=== PATIENT | male | born 1990 | race Two or more races ===

== ENCOUNTER 2022-09-23 19:26 | Emergency (ER) | payer SELFPAY ==
[~2022-09-23] VITALS: Ht 170.2 cm; Wt 75.9 kg
[2022-09-23 19:28] VITALS: BP 119/68
[2022-09-23 20:00] LABS: Basophils # (auto) 0 10 ^3/uL (0-0.2); Basophils % (auto) 0.6 % (0.0-2.0); Eosinophils # (auto) 0.2 10 ^3/uL (0-0.8); Hematocrit 44.2 % (41.0-53.0); Hemoglobin 15.4 g/dL (13.5-17.5); Lymphocytes # (auto) 1.8 10 ^3/uL (0.4-5.4); Lymphocytes % (auto) 27.1 % (10.0-50.0); Mean Corpuscular Hemoglobin 32.9 pg (28.0-32.0); Mean Corpuscular Hgb Conc. 34.8 g/dL (32.0-36.0); Mean Corpuscular Volume 94.7 fL (80.0-100.0); Monocytes # (auto) 0.7 10 ^3/uL (0-1.3); Monocytes % (auto) 9.9 % (0.0-12.0); Neutrophils % (auto) 59.4 % (37.0-80.0); Nucleated Red Blood Cells % 0.2 %; Red Blood Cells 4.67 10^6/uL (4.5-5.90); Red Cell Distribution Width 12.5 % (11.8-14.3); White Blood Cell 6.7 10^3/uL (4.4-10.8)
[2022-09-23 20:20] LABS: INR 1.03 (0.9-1.15); Partial Thromboplastin Time 26.2 sec (24.6-33.4)
[2022-09-23 20:28] LABS: BUN/Creatinine Ratio 21.3 (10.0-20.0); Magnesium 2.2 mg/dL (1.6-2.6); Potassium 3.7 mmol/L (3.5-5.1)
[2022-09-23 20:31] LABS: Bilirubin, Total 0.9 mg/dL (0.2-1.0); Total Protein 7.4 g/dL (6.4-8.2)
[2022-09-24] MEDS ORDERED: SODIUM CHLORIDE 0.9% 1,000 ML IV ONE (01:45)
[2022-09-24] MEDS ORDERED: ONDANSETRON HCL 4 MG/2 ML VIAL IV ONE (01:45)
[2022-09-24 18:31] LABS: Urine Bacteria NONE SEEN /hpf (None Seen); Urine Blood Negative /uL (Negative); Urine Mucus FEW (None Seen); Urine Specific Gravity 1.035 (1.001-1.035); Urine WBC <1 /hpf (0 - 3)
== END 2022-09-24 06:09 | disposition left against medical advice (07) ==
LOC: ER 19:26
DX: R07.89 Other chest pain (principal); R06.02 Shortness of breath; K92.0 Hematemesis; Z53.29 Procedure and treatment not carried out because of patient's decision for other reasons
CPT/HCPCS: 36415; 74176; 80053; 81001; 83690; 83735; 83880; 84484; 85025; 85610; 85730; 93005

== ENCOUNTER 2022-09-24 11:25 | Inpatient (IN) | payer SELFPAY ==
[~2022-09-24] VITALS: Ht 170.2 cm; Wt 73.7 kg
[2022-09-24 11:47] LABS: Basophils # (auto) 0 10 ^3/uL (0-0.2); Basophils % (auto) 0.5 % (0.0-2.0); Eosinophils # (auto) 0.2 10 ^3/uL (0-0.8); Eosinophils % (auto) 3.4 % (0.0-7.0); Hematocrit 45.4 % (41.0-53.0); Hemoglobin 15.6 g/dL (13.5-17.5); Lymphocytes # (auto) 1.2 10 ^3/uL (0.4-5.4); Mean Corpuscular Hemoglobin 32.8 pg (28.0-32.0); Mean Corpuscular Hgb Conc. 34.4 g/dL (32.0-36.0); Mean Corpuscular Volume 95.2 fL (80.0-100.0); Monocytes # (auto) 0.5 10 ^3/uL (0-1.3); Monocytes % (auto) 10.3 % (0.0-12.0); Neutrophils # (auto) 2.7 10 ^3/uL (1.6-8.6); Neutrophils % (auto) 59.8 % (37.0-80.0); Red Blood Cells 4.77 10^6/uL (4.5-5.90); Red Cell Distribution Width 12.5 % (11.8-14.3); White Blood Cell 4.5 10^3/uL (4.4-10.8)
[2022-09-24 12:10] LABS: Albumin 3.9 g/dL (3.4-5.0); BUN/Creatinine Ratio 18.6 (10.0-20.0); Calcium 8.5 mg/dL (8.5-10.1); Potassium 3.4 mmol/L (3.5-5.1)
[2022-09-24 12:14] LABS: Bilirubin, Total 1.5 mg/dL (0.2-1.0); Total Protein 7.4 g/dL (6.4-8.2)
[2022-09-24] MEDS ORDERED: metroNIDAZOLE 500MG/100ML 100 ML IV ONE (15:45)
[2022-09-24] MEDS ORDERED: SODIUM CHLORIDE 0.9% 1,000 ML IV ONE ×2 (15:45)
[2022-09-24] MEDS ORDERED: ONDANSETRON HCL 4 MG/2 ML VIAL IV ONE (15:45)
[2022-09-24] MEDS ORDERED: cefTRIAXone 1GM/50ML D5W 50 ML IV ONE (15:45)
[2022-09-24] MEDS ORDERED: MORPHINE SULFATE 4 MG/ML SYR/VIAL IV ONE (15:45)
[2022-09-24] MEDS ORDERED: MORPHINE SULFATE INJ 2 MG/ml SYRG IV PRN (18:30)
[2022-09-24] MEDS: SODIUM CHLORIDE 0.9% 1,000 ML IV SCH (18:30)
[2022-09-24] MEDS ORDERED: DOCUSATE SOD 100 MG CAP PO PRN (18:30)
[2022-09-24] MEDS ORDERED: ONDANSETRON HCL 4 MG/2 ML VIAL IV PRN (18:30)
[2022-09-24] MEDS ORDERED: POTASSIUM CHL 20 Meq TABLET PO ONE (18:45)
[2022-09-24 21:41] VITALS: BP 111/67
[2022-09-24] MEDS: metroNIDAZOLE 500MG/100ML 100 ML IV SCH (22:22)
[2022-09-25] MEDS: SODIUM CHLORIDE 0.9% 1,000 ML IV SCH ×3 (00:02→13:00)
[2022-09-25 04:21] LABS: Urine Bacteria NONE SEEN /hpf (None Seen); Urine Blood Negative /uL (Negative); Urine Hyaline Cast FEW /lpf (0 - 2); Urine Specific Gravity 1.009 (1.001-1.035); Urine WBC <1 /hpf (0 - 3)
[2022-09-25 04:27] LABS: Alcohol, Urine < 3.0 mg/dL (0-10); Amphetamine Screen, Urine NEGATIVE (NEGATIVE); Barbiturate Scree,Urine NEGATIVE (NEGATIVE); Benzodiazephine Screen, Urine NEGATIVE (NEGATIVE); Cannabinoid Screen, Urine NEGATIVE (NEGATIVE); Cocaine Screen, Urine NEGATIVE (NEGATIVE); Opiate Scree,Urine NEGATIVE (NEGATIVE); Phencyclidine Screen, Urine NEGATIVE (NEGATIVE)
[2022-09-25 05:00] VITALS: BP 98/53
[2022-09-25] MEDS: metroNIDAZOLE 500MG/100ML 100 ML IV SCH ×3 (05:53→21:39)
[2022-09-25 07:08] LABS: Basophils # (auto) 0 10 ^3/uL (0-0.2); Basophils % (auto) 0.6 % (0.0-2.0); Eosinophils # (auto) 0.2 10 ^3/uL (0-0.8); Eosinophils % (auto) 3.6 % (0.0-7.0); Hematocrit 42.3 % (41.0-53.0); Hemoglobin 15.1 g/dL (13.5-17.5); Lymphocytes # (auto) 1.3 10 ^3/uL (0.4-5.4); Mean Corpuscular Hemoglobin 33.6 pg (28.0-32.0); Mean Corpuscular Hgb Conc. 35.7 g/dL (32.0-36.0); Monocytes # (auto) 0.5 10 ^3/uL (0-1.3); Monocytes % (auto) 11.7 % (0.0-12.0); Neutrophils # (auto) 2.2 10 ^3/uL (1.6-8.6); Neutrophils % (auto) 53.1 % (37.0-80.0); Nucleated Red Blood Cells % 0.3 %; Red Cell Distribution Width 12.5 % (11.8-14.3); White Blood Cell 4.2 10^3/uL (4.4-10.8)
[2022-09-25 07:32] LABS: Potassium 3.9 mmol/L (3.5-5.1)
[2022-09-25 07:41] LABS: Albumin 3.3 g/dL (3.4-5.0); BUN/Creatinine Ratio 12.1 (10.0-20.0); Bilirubin, Total 1.4 mg/dL (0.2-1.0); Total Protein 6.2 g/dL (6.4-8.2)
[2022-09-25 09:00] VITALS: BP 110/60
[2022-09-25] MEDS: cefTRIAXone 1GM/50ML D5W 50 ML IV SCH (09:23)
[2022-09-25] MEDS: PANTOPRAZOLE 40 MG/10 ML VIAL INJ IV SCH (10:00)
[2022-09-25 13:00] VITALS: BP 98/52
[2022-09-25 17:00] VITALS: BP 94/51
[2022-09-25] MEDS: SUCRALFATE 1 GM/10 ML ORAL SUSP PO SCH (21:38)
[2022-09-25 22:00] VITALS: BP 107/42
[2022-09-26] MEDS: SODIUM CHLORIDE 0.9% 1,000 ML IV SCH (02:20)
[2022-09-26 05:00] VITALS: BP 97/43
[2022-09-26] MEDS: SUCRALFATE 1 GM/10 ML ORAL SUSP PO SCH ×2 (06:00→12:00)
[2022-09-26] MEDS: metroNIDAZOLE 500MG/100ML 100 ML IV SCH (06:00)
[2022-09-26 09:00] VITALS: BP 108/58
[2022-09-26] MEDS: cefTRIAXone 1GM/50ML D5W 50 ML IV SCH (09:03)
[2022-09-26] MEDS: PANTOPRAZOLE 40 MG/10 ML VIAL INJ IV SCH (09:24)
[2022-09-26] MEDS ORDERED: PANT40TA2 PO (11:11)
[2022-09-26] MEDS ORDERED: SUCR1TAB22 OR (11:11)
[2022-09-26 13:00] VITALS: BP 108/62
== END 2022-09-26 13:20 | disposition home or self-care (01) | DRG 391 ==
LOC: ER 11:25 → OVERFLOW 18:33 → WEST WING 21:10
PROVIDERS: ADMIT Nurse Practitioner Family; ATTEND Nurse Practitioner Acute Care
DX: K29.90 Gastroduodenitis, unspecified, without bleeding (principal); K85.90 Acute pancreatitis without necrosis or infection, unspecified; E87.6 Hypokalemia; F10.20 Alcohol dependence, uncomplicated; F17.200 Nicotine dependence, unspecified, uncomplicated; Z20.822 Contact with and (suspected) exposure to COVID-19; Y90.9 Presence of alcohol in blood, level not specified
CPT/HCPCS: 36415; 80053; 80307; 81001; 83605; 83690; 85025; 86677; 87040; C9113; G0378; J0696; J3490

== ENCOUNTER 2023-12-28 20:04 | Emergency (ER) | payer BC ==
[~2023-12-28] VITALS: Ht 170.2 cm; Wt 72.0 kg
[~2023-12-28 20:04] MED LIST: PANT40TA2 PO; SUCR1TAB31 OR
[2023-12-28 21:18] LABS: Basophils # (auto) 0 10 ^3/uL (0-0.2); Basophils % (auto) 0.5 % (0.0-2.0); Eosinophils # (auto) 0.2 10 ^3/uL (0-0.8); Eosinophils % (auto) 2.5 % (0.0-7.0); Hematocrit 45.6 % (41.0-53.0); Hemoglobin 16.3 g/dL (13.5-17.5); Lymphocytes # (auto) 1.5 10 ^3/uL (0.4-5.4); Mean Corpuscular Hemoglobin 33.8 pg (28.0-32.0); Mean Corpuscular Hgb Conc. 35.8 g/dL (32.0-36.0); Mean Corpuscular Volume 94.5 fL (80.0-100.0); Monocytes # (auto) 0.9 10 ^3/uL (0-1.3); Monocytes % (auto) 13.6 % (0.0-12.0); Neutrophils # (auto) 4.2 10 ^3/uL (1.6-8.6); Neutrophils % (auto) 61.4 % (37.0-80.0); Red Blood Cells 4.83 10^6/uL (4.5-5.90); Red Cell Distribution Width 12.2 % (11.8-14.3); White Blood Cell 6.8 10^3/uL (4.4-10.8)
[2023-12-28 21:40] LABS: Alanine Aminotransferase 33 U/L (7-40); Albumin 4.8 g/dL (3.2-4.8); Alkaline Phosphatase 93 U/L (46-116); Anion Gap 7 (5-15); Aspartate Aminotransferase 17 U/L (13-40); Blood Urea Nitrogen 20 mg/dL (9-23); Carbon Dioxide 26 mmol/L (20-30); Chloride 102 mmol/L (98-107); Creatine Kinase IFCC 144 U/L (46-171); Glucose 134 mg/dL (74-106); Magnesium 2.2 mg/dL (1.6-2.6); Potassium 3.6 mmol/L (3.5-5.1); Sodium 135 mmol/L (136-145)
[2023-12-28 21:41] LABS: Bilirubin, Total 2.7 mg/dL (0.2-1.0); Total Protein 7.5 g/dL (5.7-8.2)
[2023-12-28] MEDS: SODIUM CHLORIDE 0.9% 1,000 ML IV SCH (21:45)
[2023-12-28] MEDS: KETOROLAC TROMETH 30 MG/ML 1ML VIAL IV ONE (23:45)
[2023-12-28] MEDS: SODIUM CHLORIDE 0.9% 1,000 ML IV ONE (23:45)
[2023-12-29] VITALS: PULSE 79; RESP 20; TEMP 97.9; O2SAT 96
[2023-12-29 02:49] VITALS: BP 96/55; PULSE 63; RESP 14; O2SAT 96
== END 2023-12-29 03:00 | disposition home or self-care (01) ==
LOC: ER 20:04
DX: T75.89XA Other specified effects of external causes, initial encounter (principal); F17.210 Nicotine dependence, cigarettes, uncomplicated; X58.XXXA Exposure to other specified factors, initial encounter; Y93.89 Activity, other specified; Y92.89 Other specified places as the place of occurrence of the external cause; Y99.8 Other external cause status
CPT/HCPCS: 36415; 70450; 71045; 80053; 82550; 83735; 83874; 84484; 85025; 93005; 96361; 96374; 99285; J1885; J7030